=== PATIENT | female | born 1965 | race Caucasian/White ===

== ENCOUNTER 2018-08-19 15:48 | Outpatient (REF) | payer BC, SELFPAY | END 2018-08-19 16:08 | LOC: NCHCN 15:48 | PROVIDERS: PCP Family Medicine; Visit Provider Family Medicine | DX: R30.9 Painful micturition, unspecified (principal) | CPT/HCPCS: 87077; 87086; 87186 ==

== ENCOUNTER 2018-12-04 09:46 | Outpatient (REF) | payer BC, SELFPAY | END 2018-12-04 10:06 | LOC: NCHCN 09:46 | PROVIDERS: PCP Family Medicine; Visit Provider Family Medicine | DX: R30.0 Dysuria (principal) | CPT/HCPCS: 87077; 87086; 87186 ==

== ENCOUNTER 2018-12-16 22:03 | Outpatient (REF) | payer BC, SELFPAY | END 2018-12-16 22:23 | LOC: NCHCN 22:03 | PROVIDERS: PCP Family Medicine; Visit Provider Family Medicine | DX: R30.0 Dysuria (principal); N30.00 Acute cystitis without hematuria | CPT/HCPCS: 87086 ==

== ENCOUNTER 2019-02-04 13:31 | Outpatient (REF) | payer BC, SELFPAY | END 2019-02-04 13:51 | LOC: NCHCN 13:31 | PROVIDERS: PCP Family Medicine; Visit Provider Nurse Practitioner Family | DX: R30.0 Dysuria (principal) | CPT/HCPCS: 87077; 87086; 87186 ==

== ENCOUNTER 2020-08-01 15:33 | Outpatient (REF) | payer BC, SELFPAY | END 2020-08-01 15:53 | LOC: NCHCN 15:33 | PROVIDERS: PCP Family Medicine; Visit Provider Family Medicine | DX: R30.9 Painful micturition, unspecified (principal) | CPT/HCPCS: 87086 ==

== ENCOUNTER 2021-05-01 16:11 | Outpatient (REF) | payer BC, SELFPAY | END 2021-05-01 16:12 | disposition home or self-care (01) | LOC: NCHCN 16:11 | PROVIDERS: PCP Family Medicine; Visit Provider Family Medicine | DX: R30.9 Painful micturition, unspecified (principal) | CPT/HCPCS: 87077; 87086; 87186 ==

== ENCOUNTER 2021-08-20 15:58 | Outpatient (REF) | payer BC, SELFPAY ==
[2021-08-20 15:52] LABS: HCT 44.6 % (36.0-46.0); HGB 14.1 g/dL (11.2-15.7); MCH 28.4 pg (27.0-33.0); MCHC 31.6 % (32.0-36.0); MCV 89.7 fL (80-95); MPV 9.2 fL (8.0-11.0); Platelet Count 301 10^3/uL (130-400); RBC 4.97 10^6/uL (3.93-5.22); RDW 13.4 % (11.7-14.6); RDW-SD 44.1 fL
[2021-08-20 16:38] LABS: Hemoglobin A1C 5.6 % (<5.7)
[2021-08-20 17:00] LABS: ALT 31 U/L (14-59); AST 19 U/L (15-37); Alkaline Phosphatase 76 U/L (46-116); Anion Gap 6.2 mmol/L (3-11); BUN 11 mg/dL (7-18); Bilirubin, Total 0.5 mg/dL (0.2-1.0); CO2 29.8 mmol/L (21.0-32.0); CREATININE 0.8 mg/dL (0.55-1.02); Calcium 9.4 mg/dL (8.5-10.1); Chloride 104 mmol/L (98-107); Glucose 84 mg/dL (74-106); Potassium 4.6 mmol/L (3.5-5.1); Sodium 140 mmol/L (136-145); Total Protein 7.1 g/dL (6.4-8.2)
== END 2021-08-20 15:59 | disposition home or self-care (01) ==
LOC: NCHCN 15:58
PROVIDERS: PCP Family Medicine; Visit Provider Nurse Practitioner Family
DX: Z00.00 Encounter for general adult medical examination without abnormal findings (principal)
CPT/HCPCS: 80053; 85027; 83036; 84443

== ENCOUNTER 2023-06-24 16:46 | Outpatient (REF) | payer BC, SELFPAY ==
[2023-06-24 22:21] LABS: HCT 43.2 % (36.0-46.0); HGB 13.9 g/dL (11.2-15.7); MCH 28.3 pg (27.0-33.0); MCHC 32.2 % (32.0-36.0); MCV 88 fL (80-95); MPV 9.1 fL (8.0-11.0); Platelet Count 316 10^3/uL (130-400); RBC 4.91 10^6/uL (3.93-5.22); RDW-SD 41.9 fL; WBC 6.62 10^3/uL (4.4-10.8)
[2023-06-24 22:52] LABS: ALT 21 U/L (14-59); AST 16 U/L (15-37); Albumin 3.9 g/dL (3.4-5.0); Alkaline Phosphatase 74 U/L (46-116); Anion Gap 5.5 mmol/L (3-11); BUN 8 mg/dL (7-18); Bilirubin, Total 0.4 mg/dL (0.2-1.0); CO2 30.5 mmol/L (21.0-32.0); Calcium 9.4 mg/dL (8.5-10.1); Chloride 102 mmol/L (98-107); Glucose 90 mg/dL (74-106); Sodium 138 mmol/L (136-145); TSH (W/Ref FT4) 2.42 uIU/mL (0.36-3.74); Total Protein 7.1 g/dL (6.4-8.2)
[2023-06-24 23:07] LABS: Vitamin D 25 Total 68.5 ng/mL (30-100)
[2023-06-30 12:12] LABS: IgA 55 mg/dL (85-499); Interpretation (See Note); Tissue Transglutaminase IgA <1.2 U/mL (<4.0)
== END 2023-06-24 16:47 | disposition home or self-care (01) ==
LOC: NCHCN 16:46
PROVIDERS: PCP Family Medicine; Visit Provider Family Medicine
DX: R53.83 Other fatigue (principal); K59.09 Other constipation; E55.9 Vitamin D deficiency, unspecified
CPT/HCPCS: 80053; 82306; 82784; 83516; 85027; 86816; 84443

== ENCOUNTER 2023-11-06 12:23 | Outpatient (REF) | payer BC, SELFPAY ==
[2023-11-06 14:55] LABS: Calculated LDL 101 mg/dL (<100); Cholesterol 190 mg/dL (<200); Glucose 90 mg/dL (74-106); HDL Cholesterol 73 mg/dL (40-60); Triglyceride 81 mg/dL (<150)
== END 2023-11-06 12:24 | disposition home or self-care (01) ==
LOC: NCHCN 12:23
PROVIDERS: PCP Family Medicine; Visit Provider Family Medicine
DX: Z00.00 Encounter for general adult medical examination without abnormal findings (principal); Z13.220 Encounter for screening for lipoid disorders; Z13.1 Encounter for screening for diabetes mellitus
CPT/HCPCS: 80061; 82947

== ENCOUNTER 2024-03-30 16:01 | Outpatient (REF) | payer BC, SELFPAY | END 2024-03-30 16:02 | disposition home or self-care (01) | LOC: NCHCN 16:01 | PROVIDERS: PCP Family Medicine; Visit Provider Family Medicine | DX: R30.0 Dysuria (principal); B96.20 Unspecified Escherichia coli [E. coli] as the cause of diseases classified elsewhere | CPT/HCPCS: 87077; 87086; 87186 ==

== ENCOUNTER 2024-06-16 22:21 | Outpatient (REF) | payer BC, SELFPAY | END 2024-06-16 22:22 | disposition home or self-care (01) | LOC: NCHCN 22:21 | PROVIDERS: PCP Family Medicine; Visit Provider Family Medicine | DX: N39.0 Urinary tract infection, site not specified (principal); B96.29 Other Escherichia coli [E. coli] as the cause of diseases classified elsewhere; R39.89 Other symptoms and signs involving the genitourinary system | CPT/HCPCS: 87077; 87086; 87186 ==

== ENCOUNTER 2024-08-17 15:17 | Outpatient (REF) | payer BC, SELFPAY | END 2024-08-17 15:18 | disposition home or self-care (01) | LOC: NCHCN 15:17 | PROVIDERS: PCP Family Medicine; Visit Provider Nurse Practitioner Family | DX: R30.0 Dysuria (principal); B96.29 Other Escherichia coli [E. coli] as the cause of diseases classified elsewhere | CPT/HCPCS: 87077; 87086; 87186 ==

== ENCOUNTER 2024-09-21 22:55 | Outpatient (REF) | payer BC, SELFPAY ==
[2024-09-21 15:05] LABS: HGB 14.4 g/dL (11.2-15.7); MCH 28.6 pg (27.0-33.0); MCV 89 fL (80-95); Platelet Count 303 10^3/uL (130-400); RBC 5.04 10^6/uL (3.93-5.22); RDW 13.2 % (11.7-14.6); RDW-SD 43.4 fL; WBC 10.57 10^3/uL (4.4-10.8)
[2024-09-21 15:41] LABS: Anion Gap 6.4 mmol/L (3-11); BUN 10 mg/dL (7-18); CO2 30.6 mmol/L (21.0-32.0); CREATININE 0.9 mg/dL (0.55-1.02); Calculated LDL 105 mg/dL (<100); Chloride 105 mmol/L (98-107); Cholesterol 204 mg/dL (<200); Estimated GFR 73.19 (mL/min/1.73m2); Glucose 93 mg/dL (74-106); HDL Cholesterol 74 mg/dL (40-60); Magnesium 2.4 mg/dL (1.8-2.4); Potassium 4.1 mmol/L (3.5-5.1); Sodium 142 mmol/L (136-145); TSH (W/Ref FT4) 2.29 uIU/mL (0.36-3.74); Triglyceride 129 mg/dL (<150)
== END 2024-09-21 22:56 | disposition home or self-care (01) ==
LOC: NCHCN 22:55
PROVIDERS: PCP Family Medicine; Visit Provider Family Medicine
DX: R00.2 Palpitations (principal); E78.5 Hyperlipidemia, unspecified
CPT/HCPCS: 80048; 80061; 85027; 83735; 84443

== ENCOUNTER 2024-10-18 18:35 | Outpatient (REF) | payer BC, SELFPAY | END 2024-10-18 18:36 | disposition home or self-care (01) | LOC: NCHCN 18:35 | PROVIDERS: PCP Family Medicine; Visit Provider Family Medicine | DX: R30.0 Dysuria (principal); R82.89 Other abnormal findings on cytological and histological examination of urine | CPT/HCPCS: 87086 ==

== ENCOUNTER 2025-03-22 12:08 | Outpatient (REF) | payer BC, SELFPAY | END 2025-03-22 12:09 | disposition home or self-care (01) | LOC: NCHCN 12:08 | PROVIDERS: PCP Family Medicine; Visit Provider Family Medicine | DX: R39.9 Unspecified symptoms and signs involving the genitourinary system (principal) | CPT/HCPCS: 87077; 87086; 87186 ==

== ENCOUNTER 2025-07-27 18:13 | Outpatient (REF) | payer BC, SELFPAY | END 2025-07-27 18:14 | disposition home or self-care (01) | LOC: NCHCN 18:13 | PROVIDERS: PCP Family Medicine; Visit Provider Nurse Practitioner Family | DX: R30.0 Dysuria (principal) | CPT/HCPCS: 87077; 87086; 87186 ==